=== PATIENT | female | born 1975 | race Caucasian/White ===

== ENCOUNTER 2017-11-08 21:28 | Emergency (ER) | payer MEDICAID ==
[~2017-11-08] VITALS: Ht 157.5 cm; Wt 68.0 kg
[2017-11-08 22:04] VITALS: BP 117/74
== END 2017-11-09 01:18 | disposition home or self-care (01) ==
LOC: ER 21:28
DX: S91.012A Laceration without foreign body, left ankle, initial encounter (principal); W25.XXXA Contact with sharp glass, initial encounter; Y93.01 Activity, walking, marching and hiking; Y92.89 Other specified places as the place of occurrence of the external cause; Y99.8 Other external cause status
CPT/HCPCS: 12001; 99283; Z7610